=== PATIENT | female | born 1975 | race Caucasian/White ===

== ENCOUNTER 2016-12-24 20:12 | Emergency (ER) | payer SELFPAY ==
[~2016-12-24] VITALS: Ht 172.7 cm; Wt 99.8 kg
[2016-12-24 20:35] VITALS: BP 122/94
== END 2016-12-24 21:35 | disposition left against medical advice (07) ==
LOC: ER 20:17
DX: R50.9 Fever, unspecified (principal); Z53.21 Procedure and treatment not carried out due to patient leaving prior to being seen by health care provider
CPT/HCPCS: 93005